=== PATIENT | female | born 1995 | race African-American/Black ===

== ENCOUNTER 2018-12-05 12:34 | Emergency (ER) | payer OTHER ==
[~2018-12-05] VITALS: Ht 152.4 cm; Wt 77.3 kg
[~2018-12-05 12:34] MED LIST: MIRALAX PA17 GM/Dose PO
[2018-12-05 12:45] VITALS: TEMP 98.2
[2018-12-05 13:49] LABS: BASO % 0.4 % (0.0-2.0); EOS # 0.1 (0.0-0.7); EOS % 0.6 % (0-4.0); GRAN # 4.8 (1.4-6.5); GRAN % 60.8 % (42.2-75.2); HEMATOCRIT 37.2 % (37.0-47.0); HEMOGLOBIN 13.1 g/dl (12.5-16.0); LYMPH # 2.4 (1.2-3.4); LYMPH % 31.1 % (20.0-51.0); MEAN CELL VOLUME 81 fl (80.0-100.0); MEAN CORPUSCULAR HEMOGLOBIN 28 pg (27.0-31.0); MEAN CORPUSCULAR HGB CONC 35 g/dl (33.0-37.0); MEAN PLATELET VOLUME 12.1 fl (7.4-10.4); MONO # 0.6 (0.1-0.6); PLATELET COUNT 279 K/mm3 (130-400); RED BLOOD COUNT 4.61 M/mm3 (4.10-5.30)
[2018-12-05 13:58] LABS: ALBUMIN 4.2 gm/dL (3.5-5.0); BILIRUBIN,TOTAL 0.5 mg/dL (0.0-1.0); CALCIUM 9.4 mg/dL (8.4-10.2); CREATININE, serum 0.54 (0.52-1.25); POTASSIUM 3.6 mmol/L (3.4-5.0); TOTAL PROTEIN 7.9 gm/dL (6.4-8.2)
[2018-12-05 14:50] LABS: COLLECTION METHOD CLEAN CATCH
[2018-12-05 14:58] LABS: MUCOUS Present /lpf; PH 6 (5-8); SQUAMOUS EPITHELIAL 0-2 /hpf; URINE APPEARANCE Clear; URINE BACTERIA None Seen /hpf; URINE BILIRUBIN Negative (NEGATIVE); URINE BLOOD Negative (NEGATIVE); URINE COLOR Yellow; URINE GLUCOSE Negative (NEGATIVE); URINE KETONE 2+ (NEGATIVE); URINE LEUKOCYTE ESTERASE Negative (NEGATIVE); URINE NITRATE Negative (NEGATIVE); URINE PROTEIN(semi-quant) Negative (NEGATIVE); URINE RBC 0-2 /hpf; URINE UROBILINOGEN Negative (NEGATIVE)
[2018-12-05 16:07] VITALS: BP 113/99; PULSE 84
== END 2018-12-05 17:00 | disposition home or self-care (01) ==
LOC: COL.ER 12:34
PROVIDERS: Emergency Medicine
DX: O21.9 Vomiting of pregnancy, unspecified (principal); Z3A.01 Less than 8 weeks gestation of pregnancy
CPT/HCPCS: J1200; J2550; J7030; J7042

== ENCOUNTER 2019-01-26 10:25 | Emergency (ER) | payer OTHER ==
[~2019-01-26] VITALS: Ht 152.4 cm; Wt 75.5 kg
[2019-01-26 10:29] VITALS: TEMP 98.5
[2019-01-26] MEDS ORDERED: REGLAN 5MG T5 MG/TAB PO (10:34)
[2019-01-26] MEDS ORDERED: PROMETHAZINE12.5 M5 PO (10:35)
[2019-01-26 11:14] LABS: BASO % 0.4 % (0.0-2.0); EOS # 0.2 (0.0-0.7); EOS % 1.9 % (0-4.0); GRAN # 5.3 (1.4-6.5); GRAN % 64.9 % (42.2-75.2); HEMOGLOBIN 12.1 g/dl (12.5-16.0); LYMPH # 2.3 (1.2-3.4); LYMPH % 28.3 % (20.0-51.0); MEAN CELL VOLUME 81 fl (80.0-100.0); MEAN CORPUSCULAR HEMOGLOBIN 29 pg (27.0-31.0); MEAN CORPUSCULAR HGB CONC 36 g/dl (33.0-37.0); MEAN PLATELET VOLUME 11.5 fl (7.4-10.4); MONO # 0.3 (0.1-0.6); MONO % 4.1 % (1.7-9.3); PLATELET COUNT 262 K/mm3 (130-400); RED BLOOD COUNT 4.14 M/mm3 (4.10-5.30); REDCELL DISTRIBUTION WIDTH-CV 13.3 % (11.5-14.5)
[2019-01-26 11:23] LABS: ALBUMIN 3.8 gm/dL (3.5-5.0); BILIRUBIN,TOTAL 0.3 mg/dL (0.0-1.0); CALCIUM 8.9 mg/dL (8.4-10.2); CREATININE, serum 0.51 (0.52-1.25); POTASSIUM 3.7 mmol/L (3.4-5.0); TOTAL PROTEIN 7.3 gm/dL (6.4-8.2)
[2019-01-26 11:28] LABS: HEMATOCRIT 33.6 % (37.0-47.0)
[2019-01-26 11:32] LABS: COLLECTION METHOD CLEAN CATCH
[2019-01-26 11:40] LABS: MUCOUS Present /lpf; PH 5 (5-8); SQUAMOUS EPITHELIAL 0-2 /hpf; URINE APPEARANCE Clear; URINE BACTERIA None Seen /hpf; URINE BILIRUBIN Negative (NEGATIVE); URINE BLOOD Negative (NEGATIVE); URINE COLOR Yellow; URINE GLUCOSE Negative (NEGATIVE); URINE KETONE 1+ (NEGATIVE); URINE LEUKOCYTE ESTERASE Negative (NEGATIVE); URINE NITRATE Negative (NEGATIVE); URINE PROTEIN(semi-quant) Negative (NEGATIVE); URINE RBC 0-2 /hpf
[2019-01-26 13:30] VITALS: BP 112/72; PULSE 66
== END 2019-01-26 13:30 | disposition home or self-care (01) ==
LOC: COL.ER 10:25
PROVIDERS: Physician Assistant
DX: R55 Syncope and collapse (principal)
CPT/HCPCS: J2550

== ENCOUNTER 2019-04-22 10:50 | Emergency (ER) | payer OTHER ==
[~2019-04-22] VITALS: Ht 152.4 cm; Wt 75.5 kg
[~2019-04-22 10:50] MED LIST changes: +PROMETHAZINE12.5 M5 PO; +REGLAN 5MG T5 MG/TAB PO
[2019-04-22 10:58] VITALS: TEMP 98.5
[2019-04-22 11:16] LABS: BASO % 0.2 % (0.0-2.0); EOS # 0.1 (0.0-0.7); GRAN # 6.5 (1.4-6.5); GRAN % 71.5 % (42.2-75.2); HEMOGLOBIN 11.4 g/dl (12.5-16.0); LYMPH % 22.3 % (20.0-51.0); MEAN CELL VOLUME 85 fl (80.0-100.0); MEAN CORPUSCULAR HEMOGLOBIN 30 pg (27.0-31.0); MEAN CORPUSCULAR HGB CONC 36 g/dl (33.0-37.0); MEAN PLATELET VOLUME 11.2 fl (7.4-10.4); MONO # 0.4 (0.1-0.6); MONO % 4.8 % (1.7-9.3); PLATELET COUNT 238 K/mm3 (130-400); REDCELL DISTRIBUTION WIDTH-CV 12.6 % (11.5-14.5)
[2019-04-22 11:17] LABS: HEMATOCRIT 32.1 % (37.0-47.0)
[2019-04-22 11:28] LABS: ALBUMIN 3.5 gm/dL (3.5-5.0); BILIRUBIN,TOTAL 0.4 mg/dL (0.0-1.0); CALCIUM 8.9 mg/dL (8.4-10.2); CREATININE, serum 0.48 (0.52-1.25); POTASSIUM 3.8 mmol/L (3.4-5.0)
[2019-04-22 13:20] VITALS: BP 114/67; PULSE 78
== END 2019-04-22 13:25 | disposition home or self-care (01) ==
LOC: COL.ER 10:50
PROVIDERS: Emergency Medicine
DX: O26.893 Other specified pregnancy related conditions, third trimester (principal); R55 Syncope and collapse; Z3A.27 27 weeks gestation of pregnancy
CPT/HCPCS: J7030